=== PATIENT | female | born 1985 | race Caucasian/White ===

== ENCOUNTER 2017-10-27 20:04 | Emergency (ER) | payer OTHER ==
[~2017-10-27] VITALS: Ht 170.2 cm; Wt 96.2 kg
[~2017-10-27 20:04] MED LIST: A/B OTIC 54 MG/15 ML OTIC; FIORICET 50-301 EACH PO; VISTARIL50 M1 PO; ZOFRAN ODT4 M1 PO; ZOFRAN4 M1 SL
[2017-10-27] MEDS ORDERED: MIRENA1 EACH (21:14)
[2017-10-27] MEDS ORDERED: SUBOXONE 8 MG-1 EACH SL (21:14)
--- NOTE | 2017-10-27 22:24 | ED GENERAL ADULT ---
History of Present Illness General Chief Complaint: Headache Stated Complaint: FEVER, SORE THROAT, EARS HURT Source: patient Exam Limitations: no limitations Vital Signs & Intake/Output Vital Signs & Intake/Output Vital Signs Date Time Temp Pulse Resp B/P B/P Pulse O2 O2 Flow FiO2 Mean Ox Delivery Rate 10/28 2015 99.8 100 18 107/69 96 Room Air Allergies Coded Allergies: Penicillins (Intermediate, RASH 03/17/16) Triage Note: PT TO ER C/C THROAT PAIN, B/L EAR PAIN AND BODY ACHES/FEVERS X 2 DAYS. DAUGHTER DX WITH STREP THROAT. Triage Nurses Notes Reviewed? yes Onset: Gradual Duration: day(s): Timing: constant : No Patient currently breastfeeds: No HPI: 32 y/o female with h/o migraines presenting with fevers, sore throat, bilateral ear pressure, and mylagias x2 days. Daughter recently dx with strep. Denies nasal congestion, rhionorrhea, cough, CP, SOB, NVD, abd pain, dysuria. (Almaz Rogers) Reconcile Medications Azithromycin 250 MG TABLET 1 TAB PO DAILY strep 2 the first day followed by 1 for days 2-5 Buprenorphine HCl/Naloxone HCl (Suboxone 8 MG-2 MG Sl Film) 8 MG-2 MG FILM 1 STR SL TID MENTAL HEALTH (Reported) Levonorgestrel (Mirena) 20 MCG/24 HOUR (5 YEARS) IUD CONTROL (Reported) (Bret Fan MD) Past History Travel History Traveled to [place] past 21 day No Medical History Any Pertinent Medical History? see below for history Neurological: migraine EENT: NONE Cardiovascular: NONE Respiratory: NONE Gastrointestinal: NONE Hepatic: NONE Renal: NONE Musculoskeletal: NONE Psychiatric: anxiety, opioid dependence (on suboxone) Endocrine: NONE Blood Disorders: NONE Cancer(s): NONE WATCH SUPERVISOR/Reproductive: , 2 misscariages Surgical History Surgical History: , d&c Psychosocial History What is your primary language Spanish Tobacco Use: Current Daily Use Daily Tobacco Use Amount/Type: => 5 Cigarettes daily Family History Hx Contributory? No (Almaz Rogers) Review of Systems Review of Systems Constitutional: Reports: see HPI. EENTM: Reports: see HPI. Respiratory: Reports: no symptoms. Cardiovascular: Reports: no symptoms. GI: Reports: no symptoms. Genitourinary: Reports: no symptoms. Musculoskeletal: Reports: no symptoms. Skin: Reports: no symptoms. Neurological/Psychological: Reports: no symptoms. Hematologic/Endocrine: Reports: no symptoms. Immunologic/Allergic: Reports: no symptoms. (Almaz Rogers) Physical Exam Physical Exam General Appearance: well developed/nourished, no apparent distress, alert, awake , comfortable Head: atraumatic, normal appearance Eyes: Bilateral: normal appearance. Ears, Nose, Throat: Symmetric tonsil enlargement, +exudates, uvula midline. Neck: normal inspection, +anterior cervical LAD Respiratory: normal breath sounds, lungs clear Cardiovascular: regular rate/rhythm Gastrointestinal: soft, non-tender Back: normal inspection Extremities: normal inspection Neurologic/Psych: awake, alert, oriented x 3, normal gait, normal mood/affect Skin: intact, normal color, warm/dry Core Measures ACS in differential dx? No CVA/TIA Diagnosis: No Sepsis Present: No Sepsis Focused Exam Completed? No (Almaz Rogers) Progress Differential Diagnoses I considered the following diagnoses in my evaluation of the patient: [strep pharyngitis vs viral pharyngitis, low concern for ENAMEL APPLIER vs RPA vs epiglottis ] Plan of Care: Orders Procedure Date/time Status THROAT CULTURE W/QUICK STREP 10/27 2024 Complete Rapid strep positive. Rx azithromycin due to pencillin allergy. Given toradol, dexamethasone, and magic mouth was for symptom relief. Counseled on supportive care and strict return precautions. Initial ED EKG: none (Almaz Rogers) Departure Departure Disposition: HOME OR SELF CARE Condition: Stable Clinical Impression Primary Impression: Strep pharyngitis Referrals: [facility] (PCP/Family) Additional Instructions: Take azithromycin as prescribed. Use magic mouth was as needed for pain. Follow up with your primary care provider for re-evaluation. Return to the emergency department for any new or worsening symptoms. Departure Forms: Customer Survey General Discharge Information (Almaz Rogers) Departure Prescriptions: Current Visit Scripts Azithromycin 1 TAB PO DAILY #7 TAB 2 the first day followed by 1 for days 2-5 PA/PAPER SUPERVISOR Co-Sign Statement Statement: ED Attending supervision documentation- I saw and evaluated the patient. I have also reviewed all the pertinent lab results and diagnostic results. I agree with the findings and the plan of care as documented in the PA's/PAPER SUPERVISOR's documentation. x I have reviewed the ED Record and agree with the PA's/PAPER SUPERVISOR's documentation. [] Additions or exceptions (if any) to the PAs/PAPER SUPERVISOR's note and plan are summarized below: [] ([facility],Bret) Critical Care Note Critical Care Note Critical Care Time: non-applicable (El CHEW,Almaz)
[2017-10-27] MEDS ORDERED: AZITHROMYCIN250 M1 PO ×2 (22:38→22:43)
[2017-10-27 23:02] VITALS: BP 147/89
== END 2017-10-27 23:10 ==
LOC: ERH 20:04
DX: J02.0 Streptococcal pharyngitis (principal); F17.210 Nicotine dependence, cigarettes, uncomplicated
CPT/HCPCS: 96372; J1885